=== PATIENT | female | born 1955 | race Caucasian/White ===

== ENCOUNTER → 2016-09-05 | Outpatient (CLI) | payer BC ==
[~2016-09-05] MED LIST: MTR600X PO; OXYC-57 PO
== END | disposition home or self-care (01) ==
LOC: C.LABSPEC 16:51
PROVIDERS: ATTEND Podiatrist Foot & Ankle Surgery
DX: B35.1 Tinea unguium (principal)

== ENCOUNTER 2021-09-13 08:11 | Observation (INO) ==
--- NOTE | 2021-08-01 12:49 | Anesthesiology Consultation ---
Date of Service August 01, 2021 Assessment & Plan (1) Encounter for pre-operative examination: Chart Review Chart Review: Acceptable Risk for Surgery and Patient NOT seen in Pre Admission Testing PATIENT NEEDS PREOP ECG GIVEN AGE. SEE IF ONE IN dianboomER SYSTEM OTHERWISE ONE WILL NEED TO BE ORDERED. Consults Requested none History Surgery Operation Date: 08/09/21 08:50 Proposed Procedures p Total Laparoscopic Hysterectomy, Bilateral Salpingectomy, Cystoscopy, Possible Laparotomy - Lobito Charles MD Height/Weight Height: 5 ft Weight: 95.254 kg Allergies Allergy/AdvReac Type Severity Reaction Status Date / Time Bactrim Allergy RASH Verified 09/01/13 08:04 sulfamethoxazole Allergy RASH Verified 08/01/21 10:35 trimethoprim Allergy RASH Verified 08/01/21 10:35 Medications Home Medications Medication Instructions Recorded Confirmed Last Taken No Known Home Medications 08/01/21 08/01/21 Unknown Past Medical History Medical History Abnormal uterine bleeding (AUB) Morbid obesity with BMI of 40.0-44.9, adult Past Surgical History Surgical History History of appendectomy History of History of cholecystectomy History of colonoscopy History of right salpingo-oophorectomy History of rotator cuff surgery Left Social History Smoking Status: Never smoker Do You Dip or Chew Tobacco: No Hx Alcohol Use: No Hx Substance Use: No substance use type: does not use Testing Laboratory Results Labs 07/15/21. WBC 7.3, Hgb 15.4, Hct 45.2, plt 235 Na 140, K 4.5, Cl 105, BUN 11, creat 0.9, glucose 93
[~2021-09-13 08:11] MED LIST changes: +LACTATED RINGER'S 1,000 ML IV SCH; +LR 15ML/HR IV SCH; -MTR600X PO; -OXYC-57 PO; +ceFAZolin 2000MG 2,000 MG/15 ML SYR IV SCH
[2021-09-13] MEDS ORDERED: fentaNYL citrate 100 MCG/2 ML VIAL ONE ×2 (08:40→11:08)
[2021-09-13] MEDS ORDERED: MIDAZOLAM HCL 1 MG/ML 2ML VIAL ONE (08:40)
[2021-09-13] MEDS ORDERED: PROPOFOL IV EMULSION 10 MG/ML 20 ML VIAL IV ONE (08:41)
[2021-09-13] MEDS ORDERED: LIDOCAINE 2% 2 ML VIAL/AMP(20MG/ML) INFIL ONE (08:41)
[2021-09-13] MEDS ORDERED: DEXAMETHASONE SOD INJ 4 MG/ML VIAL ONE (08:41)
[2021-09-13] MEDS ORDERED: ONDANSETRON INJ 2 MG/ML 2 ML VIAL ONE (08:41)
[2021-09-13] MEDS ORDERED: ROCURONIUM BROMIDE 10 MG/ML 5 ML VIAL IV ONE ×5 (08:41)
[2021-09-13] MEDS ORDERED: LABETALOL HCL IV 5 MG/ML 20ML IV PRN (09:58)
[2021-09-13] MEDS ORDERED: KETOROLAC 30 MG/ML VIAL IV PRN (09:58)
[2021-09-13] MEDS ORDERED: fentaNYL citrate 100 MCG/2 ML VIAL IV PRN (09:58)
[2021-09-13] MEDS ORDERED: PROMETHAZINE HCL 6.25 MG in SODIUM CHLORIDE 0.9% 50 ML IV PRN (09:58)
[2021-09-13] MEDS ORDERED: ATROPINE SULFATE 0.1 MG/ML 10ML SYR IV PRN (09:58)
[2021-09-13] MEDS ORDERED: ONDANSETRON INJ 2 MG/ML 2 ML VIAL IV PRN (09:58)
[2021-09-13] MEDS ORDERED: BUPIVACAINE 0.5 % 5 MG/1 ML MPF 30ML VIAL ONE (10:15)
[2021-09-13] MEDS ORDERED: ACETAMINOPHEN 1000 MG/100 ML IV IV ONE (10:18)
--- NOTE | 2021-09-13 10:23 | History & Physical Bridge Note ---
Date of Service September 13, 2021 History & Physical Bridge Note I have examined the patient, reviewed the History & Physical and in the interval since the performance of the History & Physical I have noted the following changes of clinical significance: no changes noted
[2021-09-13] MEDS ORDERED: TISSEEL FIBRIN SEALANT 10ML TOP ONE (11:26)
--- NOTE | 2021-09-13 12:03 | Electrocardiogram Report ---
Test Reason : Blood Pressure : / mmHG Vent. Rate : 090 BPM Atrial Rate : 090 BPM P-R Int : 166 ms QRS Dur : 076 ms QT Int : 396 ms P-R-T Axes : 046 -14 007 degrees QTc Int : 484 ms Sinus rhythm with occasional Premature ventricular complexes Minimal voltage criteria for LVH, may be normal variant Poor R wave progression, consider anterior AR vs. lead placement vs. LVH Abnormal ECG When compared with ECG of 10-MAY-2010 11:56, Premature ventricular complexes are now Present QT has lengthened Confirmed by Chilo Barraza ([id number]) on 09/13/2021 12:02:40 PM Referred By: Lobito Charles Confirmed By:Luke Barraza
[2021-09-13] MEDS ORDERED: NEOSTIGMINE METHYLSULFATE 1 MG/ML 10ML VIAL ONE (12:19)
[2021-09-13] MEDS ORDERED: GLYCOPYRROLATE 0.2 MG/ML VIAL ONE (12:19)
--- NOTE | 2021-09-13 14:10 | Post Operative Brief Note ---
Immediate Post Op Note v1 Date of Surgery September 13, 2021 Pre & Post Diagnosis Operation Date: 09/13/21 09:50 Pre-Op Diagnosis: Endometrial Intraepithlial Neoplasia Post-Op Diagnosis: Endometrial Intraepithlial Neoplasia I identified the patient and participated in the time-out.: Yes Procedure Operation Date: 09/13/21 09:50 Actual Procedures p Total Laparoscopic Hysterectomy, Left Salpingo-Oophorectomy, Cystoscopy(Left) - Lobito Charles MD Surgeon Lobito Charles MD Goods Layer jenni escobar Estimated Blood Loss 10 Findings Consistent with Post-Op Diagnosis Drains Casas Catheter
[2021-09-13] MEDS ORDERED: oxyCODONE/ACETAMINOPHEN 5mg/325mg TAB PO PRN ×2 (14:11)
[2021-09-13] MEDS ORDERED: PROMETHAZINE HCL 12.5 MG in SODIUM CHLORIDE 0.9% 50 ML IV PRN (14:11)
[2021-09-13] MEDS ORDERED: IBUPROFEN 600 MG TAB PO PRN (14:11)
[2021-09-13] MEDS ORDERED: MAGNESIUM HYDROXIDE SUSP 30 ML UDC PO PRN (14:11)
[2021-09-13] MEDS ORDERED: SIMETHICONE 80 MG CHEW PO PRN (14:11)
[2021-09-13] MEDS ORDERED: ZOLPIDEM TARTRATE 5 MG TAB PO PRN (14:11)
[2021-09-13] MEDS ORDERED: LACTATED RINGER'S 1,000 ML IV SCH (14:15)
--- NOTE | 2021-09-13 14:23 | Anesthesiology Progress Note ---
Date of Service September 13, 2021 Anesthesia Post Procedure Vital Signs Vital Signs: Temp Pulse Pulse Resp BP Pulse Ox 09/13/21 14:20 36.2 C L 83 16 115/83 97 09/13/21 14:10 77 16 134/74 98 09/13/21 14:00 78 16 126/96 97 09/13/21 13:51 36.0 C L 77 12 123/82 97 09/13/21 08:40 36.9 C 101 H 20 150/109 H 93 Transfer of Care Handoff Completed per policy Notes Mental Status: alert / awake / arousable Patient Amnestic to Procedure: Yes Nausea / Vomiting: adequately controlled Pain: adequately controlled Airway Patency, RR, SpO2: stable & adequate BP & HR: stable & adequate Hydration State: stable & adequate Anesthetic Complications: no major complications apparent
[2021-09-13] MEDS: ONDANSETRON INJ 2 MG/ML 2 ML VIAL IV PRN ×2 (16:06→23:49)
--- NOTE | 2021-09-13 16:08 | Operative Report (OR) ---
DATE OF PROCEDURE: 09/13/2021. INDICATION FOR PROCEDURE: This is a 66-year-old with endometrial intraepithelial neoplasia. PREOPERATIVE DIAGNOSIS: Endometrial intraepithelial neoplasia. POSTOPERATIVE DIAGNOSIS: Endometrial intraepithelial neoplasia. SURGEON: Lobito Charles MD. EMULSION COATER: SARA Haji. ATTESTATION FOR EMULSION COATER: Coating Mixer Tender was necessary to help with retraction and manipulation in order to provide for safe surgery. PROCEDURES: 1. Exam under anesthesia. 2. Total laparoscopic hysterectomy with a left salpingo-oophorectomy. 3. Extensive lysis of adhesions. 4. Cystoscopy. ANESTHESIA: General. DRAINS: None. ESTIMATED BLOOD LOSS: 10 mL. INTRAVENOUS FLUIDS: 1200 mL. URINE OUTPUT: 500 mL of clear urine at the end of the procedure. SPECIMEN: Uterus and cervix with a left ovary and tube. OPERATIVE COMPLICATIONS: None. PATIENT CONDITION: Stable. DISPOSITION: Post-anesthesia care unit. ATTESTATION: I performed the entire procedure. DESCRIPTION OF PROCEDURE: The patient was taken to the operating room where she was prepped and drap ed in normal fashion in dorsal lithotomy position. Timeout was called. Casas catheter was placed in to the bladder. A weighted speculum was placed into the vagina. A [employer] uterine manipulator was vick harriett inside the uterus and around the cervix to help with manipulation of the uterus during laparoscop y. Attention was paid to the abdominal part of the procedure where a supraumbilical incision was made wi th an 11 blade and carried down to the fascia. Veress needle was introduced into the abdomen at a 45 -degree angle while tenting up the abdomen. A water-filled syringe suction test was performed. Abdo men was insufflated with 4 L of CO2 gas. Veress needle was removed and a 5 mm nonbladed trocar was i ntroduced into the abdomen with the laparoscope under direct visualization. Once inside the abdomen, three more accessory ports were placed, two ipsilateral ports were placed on the left and one contral ateral on the right. One of the ipsilateral port was an 11 mm port, the rest were 5 mm ports. These were all done under direct visualization. Once inside the abdomen, it was noted that the patient's left tube and ovary was attached to the omentum and the bowel. There was also posterior adhesions to the uterus from the omentum and the bowel. There was also extensive adhesion of the bladder to the anterior uterus. The uterus identified on both sides. Uterosacral was identified as well. Careful and extensive adhesiolysis was performed with the 5 mm LigaSure and scissors. Minimal energy was applied where needed and every attempt was made to stay away from the bowel and the areas closed where the bowel was involved. Sharp dissection was used as the preferred method of adhes ions. The LigaSure, once it was passed through the left accessory port then the fallopian tube was i dentified and grabbed 4 cm from the cornua of the uterus with the LigaSure and transected. This was followed by opening of the left anterior leaf of the broad ligament. This allowed for fenestration o f the posterior leaf of the broad ligament. Mid section of the left fallopian tube and utero-ovarian and medial ovarian pedicles were transected as well. Same attempt was made on the other side; [facility], of note is the fact that the right tube and ovary had been removed in prior to surgery. The ante rior broad ligament dissection was carried to the mid-section of the vesicouterine peritoneum over th e bladder using Harmonic scalpel. Same procedure was carried out on the contralateral side. The posterior broad ligament peritoneum was carefully dissected also from both sides over the uterosa cral arch in order to displace the ureters laterally. Using traction and countertraction, the Gela olvera retractor and irrigation probe was used to further dissect the bladder off the lower segment of th e uterus. Bladder pillars and tubal vesicle fascia was dissected as well. Harmonic scalpel was used to obtain hemostasis where needed. Uterine manipulator was now palpable over the vaginal tissue. T he right uterine pedicles were skeletonized and coagulated with LigaSure. There was good hemostasis. Same procedure was performed on the contralateral side. The cardinal ligaments were transected on both sides. Once good hemostasis was obtained, colpotomy was performed using the LigaSure hook from both sides. Uterus was removed through the vagina while still attached to the uterine manipulator. Sponge filled with gauze was placed into the vagina to help maintain pneumoperitoneum. With a graspe r, the remaining section of the left tube and ovary carefully dissected off the peritoneum and was po sitioned anteromedially and salpingo-oophorectomy performed using the LigaSure. EndoStitch closure device was passed through the 10 mm port on the left side using the [place] grasp er for traction. A colpotomy closure was performed. The uterosacrals were incorporated into the antonia sure in order to decrease the risks of prolapse. Lapra-Tys were used with EndoStitch. Attention was paid back to the cystoscopy part of the procedure where a cystoscope was placed into th e bladder and examination of the bladder showed no sutures, no lesions or masses. Bubble seen in the bladder cavity, confirming a closed loop. Both ureteral orifices were seen and urine was seen injec ting out of both ureteral openings. Cystoscope was removed. Attention was paid back to the abdominal part of the procedure where the 5 mm ports were closed using Dermabond. The 10 mm port was closed in 2 layers. Fascia was grabbed, [id number] Vicryl stitc h was used for fascia. Skin was closed with 4-0 Monocryl. All instruments were removed from the abdomen and vagina and accounted for x2 including sponges, need les, and retractors. The patient was sent to recovery in stable condition. ESTIMATED BLOOD LOSS: 10 mL. INTRAVENOUS FLUIDS: 1200 mL. URINE OUTPUT: 500 mL of clear urine at the end of the procedure. Job ID: [id number]
[2021-09-13] MEDS: DOCUSATE SODIUM 100 MG CAP PO SCH (20:49)
[2021-09-14 06:55] LABS: BUN Creatinine Ratio 14.5 (10-20); Blood Urea Nitrogen 10 mg/dl (6-23); Calcium 8.2 mg/dl (8.5-10.1); Carbon Dioxide 22 mmol/L (21-32); Chloride 107 mmol/L (98-107); Est GFR (African American) 105.9 ml/min; Est GFR (Non-African American) 91.4 ml/min; Glucose 127 mg/dl (70-99(Fasting))
[2021-09-14 07:13] LABS: ANC (manual) 9.03 K/uL (1.4-6.5); Basophils # (manual) 0.11 K/uL (0-0.2); Basophils % (manual) 0.9 %; Hematocrit (blood only) 40.5 % (37-47); Hemoglobin 13.9 g/dL (12.0-16.0); Mean Corpuscular Hemoglobin 30.7 pg (25-34); Mean Corpuscular Hgb Conc 34.3 g/dL (32-36); Mean Corpuscular Volume 89.4 fL (80-100); Monocytes # (manual) 0.88 K/uL (0.11-0.59); Neutrophils # (manual) 9.03 K/uL (1.4-6.5); Neutrophils % (manual) 72.1 %; Platelet Count 243 K/uL (130-400); RDW Coefficient of Variation 13.8 % (11.5-14.5); RDW Standard Deviation 45.3 fL (36.4-46.3); Red Blood Count 4.53 M/uL (4.2-5.4); White Blood Count 12.52 K/uL (4.8-10.8)
[2021-09-14 08:03] LABS: Potassium 3.9 mmol/L (3.5-5.1)
[2021-09-14] MEDS: DOCUSATE SODIUM 100 MG CAP PO SCH (08:35)
--- NOTE | 2021-09-14 09:53 | Obstetrical Progress Note ---
Date of Service September 14, 2021 Assessment & Plan (1) Endometrial intraepithelial neoplasia (EIN): POD #1 TLH for EIN Pt doing well Tolerating PO food and meds reviewed labs Plan d/c home whenthis PM Subjective Review of Systems All systems reviewed & are unremarkable except as noted in HPI & below Physical Exam Constitutional WD/WN, vitals as above Eyes PERRL, conjunctivae normal, anicteric sclerae ENMT external ear and nose normal, oropharynx normal Neck trachea midline, no thyromegaly Respiratory normal respiratory effort, lungs clear to auscultation Cardiovascular RRR, no murmur, no edema Chest (Breasts) normal inspection/palpation of breasts Gastrointestinal (Abdomen) normal bowel sounds, soft, nontender, no hepatosplenomegaly Musculoskeletal no cyanosis or clubbing, extremities motor strength 5/5 Skin + incision (Incision clean,dry and intact) Neurologic patellar DTR's 2+ bilat, sensation intact Psychiatric A+Ox3, euthymic affect Genitourinary no vaginal lesions, no adnexal mass Lymphatic no cervical or axillary lymphadenopathy Results & Data ([facility]) Vital Signs (Past 12 Hours) Vital Signs Temp Pulse Resp BP Pulse Ox 09/14/21 03:15 36.5 C 77 16 122/69 94 09/13/21 23:30 36.8 C 96 H 17 129/81 93
--- NOTE | 2021-09-14 22:13 | Discharge Summary (DS) ---
DATE OF ADMISSION: 09/13/2021. DATE OF DISCHARGE: 09/14/2021. DATE OF PROCEDURE: 09/13/2021. PLACE OF PROCEDURE: [facility]. CHIEF COMPLAINT: Endometrial intraepithelial neoplasia. HISTORY OF PRESENT ILLNESS: This is a 66-year-old G15, P3, status post endometrial intraepithelial n eoplasia, who underwent total laparoscopic hysterectomy with left salpingo-oophorectomy and cystoscop y. The right adnexa had been removed in a prior surgery. There was extensive lysis of adhesion, whi ch was also performed as part of the surgery. The patient did well in recovery and this morning has been discharged home in stable condition. Details of surgery is in the surgical note. PAST MEDICAL HISTORY: The patient had a history of endometriosis. PAST SURGICAL HISTORY: History of colonoscopies, right adnexal surgery, tubal ligation, removal of a ppendix and ovary, removal of gallbladder. FAMILY HISTORY: Noncontributory. SOCIAL HISTORY: The patient is and lives with spouse. Denies tobacco, drug or alcohol use. ALLERGIES: THE PATIENT IS ALLERGIC TO SULFA, TRIMETHOPRIM AND BACTRIM. REVIEW OF SYSTEMS: Negative, except as dictated in the HPI. PHYSICAL EXAMINATION: VITAL SIGNS: Vitals this morning, blood pressure 123/81, pulse is 77, respiration is 18, temperature 36.5. GENERAL: Well-developed, well-nourished white female in no acute distress. HEART: S1 and S2, regular rhythm and rate. LUNGS: Clear to auscultation bilaterally. ABDOMEN: Nontender, nondistended. Incision sites are clean, dry, and intact. Bowel sounds present. EXTREMITIES: No cyanosis, clubbing or edema. LABORATORY DATA: This morning, the patient's hemoglobin is 13.9, hematocrit is 40.5. CONDITION ON DISCHARGE: Stable. OPERATIONS: Total laparoscopic hysterectomy with left salpingo-oophorectomy, extensive lysis of adhe sions and cystoscopy. DISCHARGE DIAGNOSIS: Postoperative after total laparoscopic hysterectomy, left salpingo-oophorectomy , cystoscopy. PLAN ON DISCHARGE: The patient is discharged home with instructions regarding activity, diet, follow up appointment and medications. Job ID: [id number]
== END 2021-09-14 12:23 | disposition home or self-care (01) ==
LOC: ASU 08:11 → 4S2 08:11